=== PATIENT | female | born 1965 | race Caucasian/White ===

== ENCOUNTER 2022-10-18 12:49 | Emergency (ER) | payer OTHER ==
[~2022-10-18] VITALS: Ht 165.1 cm; Wt 76.2 kg
--- NOTE | 2022-10-18 13:00 | NUR ---
Dr. Morillo evaluating patient at bedside.
[2022-10-18 13:09] VITALS: BP 132/77
--- NOTE | 2022-10-18 13:30 | NUR ---
57 y/o female bib self with c/o throat pain, runny nose, headache and cough x 2 days. Patient tested COVID + yesterday. Patient's mom is positive. Denies any SOB. Medical History: Denies NKDA
--- NOTE | 2022-10-18 14:07 | NUR ---
Patient discharged with v/s stable. Written and verbal after care instructions given. Patient verbalized understanding. Ambulatory with steady gait. All questions addressed prior to discharge. Advised to follow up with PMD.
[2022-10-18 14:53] VITALS: BP 132/77
--- NOTE | 2022-10-18 14:53 | NUR ---
Chart checked and completed. The patient's care was reviewed and supervised by Sirena Beltran RN.
== END 2022-10-18 14:07 | disposition home or self-care (01) ==
LOC: MED 12:49
DX: U07.1 COVID-19 (principal)
CPT/HCPCS: 99281